=== PATIENT | female | born 1965 | race Caucasian/White ===

== ENCOUNTER → 2017-10-19 | Outpatient (CLI) | payer BC ==
[~2017-10-19] MED LIST: CINNAMON500 MG PO; FIORICET WI1 CAPSULE PO; FISH OIL 1,0001 EAC7 PO; GEMFIBROZIL600 MG PO; GLIPIZIDE ER2.5 MG PO; HYDROCODON-ACE1 EAC7 PO; INVOKANA300 MG PO; METFORMIN HCL1000 MG PO; OMEPRAZOLE40 M1 PO; PRAVASTATIN SOD20 MG PO; TERBINAFINE HC250 MG PO; TRAMADOL HCL50 MG PO; ZYRTEC10 M2 PO
== END | disposition home or self-care (01) ==
LOC: CDC 14:43
DX: Z01.810 Encounter for preprocedural cardiovascular examination (principal)
CPT/HCPCS: 93000